=== PATIENT | female | born 1935 | race African-American/Black ===

== ENCOUNTER 2024-01-19 17:10 | Emergency (ER) | payer MEDICARE, OTHER ==
[~2024-01-19] VITALS: Ht 167.6 cm; Wt 75.0 kg
[2024-01-19 17:14] VITALS: O2SAT 99
[2024-01-19] MEDS: MORPHINE SULFATE 4 MG/ML INJ (FOR IV/IM USE) IV STA ×2 (18:04→20:06)
[2024-01-19] MEDS: ONDANSETRON HCL 4MG/2ML INJ IV STA ×2 (18:04→19:18)
[2024-01-19] MEDS: SODIUM CHLORIDE 0.9% 1,000 ML IV ONE (18:04)
[2024-01-19 18:37] LABS: BASOPHILS % 1.1 % (0.0-2.0); DIFFERENTIAL COMMENT 0; EOSINOPHILS % 1.2 % (0.0-5.0); HEMATOCRIT. 35.2 % (36.0-48.0); HEMOGLOBIN. 12.2 g/dL (12.0-16.0); LYMPHOCYTES % 30.3 % (20.0-50.0); MEAN CORPUSCULAR HEMOGLOBIN 36.8 pg (28.0-32.0); MEAN CORPUSCULAR HGB CONC 34.6 g/dL (31.0-37.0); MEAN CORPUSCULAR VOLUME 106.3 fL (81.0-99.0); MEAN PLATELET VOLUME 7.1 fl (7.4-10.4); MONOCYTES % 2.7 % (2.0-8.0); NEUTROPHILS % 64.7 % (40.0-76.0); PLATELET 266 x1000/uL (130-400); RED BLOOD CELL COUNT 3.31 mill/uL (4.2-5.4); RED CELL DISTRIBUTION WIDTH 15.1 % (11.6-14.6)
[2024-01-19 18:44] LABS: CHLORIDE 107 mEq/L (98-107); POTASSIUM 3.8 mEq/L (3.5-5.1); SODIUM 142 mEq/L (136-145)
[2024-01-19 18:45] LABS: CALCIUM 9.9 mg/dL (8.7-10.4); CARBON DIOXIDE 26 mEq/L (21-32)
[2024-01-19 18:50] LABS: CREATININE 0.9 mg/dL (0.6-1.0); GLUCOSE 144 mg/dL (70-105); UREA NITROGEN BLOOD 20 mg/dL (9-23)
[2024-01-19 18:51] LABS: TROPONIN I HIGH SENSITIVITY 13 ng/L (3.0-34)
[2024-01-19 18:52] LABS: ALANINE AMINOTRANSFERASE 13 IU/L (10-49); ALBUMIN 4.1 g/dL (3.2-4.8); ASPARTATE AMINOTRANSFERASE 21 IU/L (<34); BILIRUBIN TOTAL 1.4 mg/dL (0.1-1.0); PROTEIN TOTAL 7.4 g/dL (6.0-8.3)
[2024-01-19] MEDS: HYDRALAZINE 20MG/ML VIAL IV ONE (20:52)
[2024-01-19 22:13] VITALS: BP 151/72; PULSE 89; RESP 16; TEMP 98.5
== END 2024-01-19 22:26 | disposition short-term general hospital (02) ==
LOC: EDBD 17:10 → ER 17:10 → CANBEDREQ 01-21 22:38
DX: S72.001A Fracture of unspecified part of neck of right femur, initial encounter for closed fracture (principal); M25.551 Pain in right hip; R51.9 Headache, unspecified; I10 Essential (primary) hypertension; E11.9 Type 2 diabetes mellitus without complications; W18.30XA Fall on same level, unspecified, initial encounter; Y93.89 Activity, other specified; Y92.89 Other specified places as the place of occurrence of the external cause; Y99.8 Other external cause status
CPT/HCPCS: 99285; 70450; 96374; 96361; 96375; 71045; 80053; 85025; 85610; 85730; 86850; 86900; 86901; 84484; 36415; 72131; 72192; 93005; 96376; J0360; J2405; J2270; J7030